=== PATIENT | male | born 1965 | race Caucasian/White ===

== ENCOUNTER → 2021-07-14 | Day surgery (SDC) | payer OTHER ==
[~2021-07-14] VITALS: Ht 177.8 cm; Wt 84.0 kg
[~2021-07-14] MED LIST: ACETAMINOPHEN500 M1 PO; ADULT ASPIRIN R81 MG PO; ASCORBIC ACID500 MG PO; BEE POLLEN550 MG PO; CLARITIN10 MG PO; CRESTOR40 MG PO; KRILL OIL 1,001 EAC1 PO; NITROSTAT0.4 MG SL; NORCO 5-325 TA1 EACH PO; NORVASC5 MG PO; PRINIVIL20 MG PO; SEROQUEL 25MG T25 MG PO; VITAMIN D1000 UNIT PO
[2021-07-14 08:10] LABS: BUN/CREAT RATIO (CALC) 14.7 RATIO; CREATININE 1.02 mg/dL (0.67-1.17); POTASSIUM 4.5 mmol/L (3.5-5.1)
== END | disposition home or self-care (01) ==
LOC: FAS 06-30 10:00
PROVIDERS: Surgery
DX: C02.9 Malignant neoplasm of tongue, unspecified (principal); K21.9 Gastro-esophageal reflux disease without esophagitis; E78.5 Hyperlipidemia, unspecified; F17.210 Nicotine dependence, cigarettes, uncomplicated; I10 Essential (primary) hypertension; Z86.010 Personal history of colon polyps; U07.1 COVID-19; Z79.82 Long term (current) use of aspirin
CPT/HCPCS: 36415; 71045; 76000; 80048; 93005; C1788; J0690; J1100; J1644; J2250; J2405; J2704; J2710; J3010; J7120

== ENCOUNTER → 2021-12-22 | Day surgery (SDC) | payer OTHER ==
[~2021-12-22] VITALS: Ht 177.8 cm; Wt 83.9 kg
== END | disposition home or self-care (01) ==
LOC: FAS 08:20
DX: Z12.11 Encounter for screening for malignant neoplasm of colon (principal); D12.3 Benign neoplasm of transverse colon; Z43.1 Encounter for attention to gastrostomy; I10 Essential (primary) hypertension; J44.9 Chronic obstructive pulmonary disease, unspecified; E78.00 Pure hypercholesterolemia, unspecified; F17.210 Nicotine dependence, cigarettes, uncomplicated; Z79.899 Other long term (current) drug therapy; Z72.89 Other problems related to lifestyle
CPT/HCPCS: J2704; J7120